=== PATIENT | female | born 1995 | race Caucasian/White ===

== ENCOUNTER 2017-04-09 14:56 | Day surgery (SDC) | payer BC ==
[~2017-04-09] VITALS: Ht 167.6 cm; Wt 95.5 kg
[2017-04-09 15:32] VITALS: Ht 167.6 cm; Wt 95.5 kg
[2017-04-09 16:18] VITALS: BP 111/66; PULSE 82; RESP 21
[2017-04-09] MEDS ORDERED: FENTAnyl 50 MCG/ML VIAL ONE (17:30)
[2017-04-09] MEDS ORDERED: MIDAZOLAM 1 MG/ML 2 ML INJ ONE ×4 (17:30→17:31)
--- NOTE | 2017-04-09 17:33 | OPPN ---
Date/Time of Note Date/Time of Note DATE: 04/09/17 TIME: 17:32 Operative Report Preoperative Diagnosis Rectal bleeding Postoperative Diagnosis Internal hemorrhoids Operation/Procedure Performed Colonoscopy Surgeon see signature line mental health assistant None Anesthesia: moderate sedation Estimated blood loss: none Transfusion Required none Specimen None Grafts/Implants none Complications none ERIN GARSIA MD Apr 09, 2017 17:33
--- NOTE | 2017-04-09 17:33 | OPPN ---
Date/Time of Note Date/Time of Note DATE: 04/09/17 TIME: 17:32 Operative Report Preoperative Diagnosis Rectal bleeding Postoperative Diagnosis Internal hemorrhoids Operation/Procedure Performed Colonoscopy Surgeon see signature line mobile unit assistant None Anesthesia: moderate sedation Estimated blood loss: none Transfusion Required none Specimen None Grafts/Implants none Complications none ERIN GARSIA MD Apr 09, 2017 17:33
--- NOTE | 2017-04-09 17:33 | OPPN ---
Date/Time of Note Date/Time of Note DATE: 04/09/17 TIME: 17:32 Operative Report Preoperative Diagnosis Rectal bleeding Postoperative Diagnosis Internal hemorrhoids Operation/Procedure Performed Colonoscopy Surgeon see signature line central supply assistant None Anesthesia: moderate sedation Estimated blood loss: none Transfusion Required none Specimen None Grafts/Implants none Complications none ERIN GARSIA MD Apr 09, 2017 17:33
[2017-04-09 17:58] VITALS: BP 111/61; PULSE 70; RESP 14
--- NOTE | 2017-04-10 04:07 | GILP ---
DATE OF PROCEDURE: NAME OF PROCEDURE: Colonoscopy. SURGEON: Erin Hare MD PREOPERATIVE DIAGNOSIS: Rectal bleeding. POSTOPERATIVE DIAGNOSES: 1. Colonoscopy all the way to the cecum. 2. Internal hemorrhoids. 3. No colitis or neoplasm was identified. INDICATION FOR THE PROCEDURE: Ms. Rita Ruiz is a 21-year-old female patient who had rectal b leeding, and at times the bleeding was profuse. Patient was scheduled for colonoscopic examination for further evaluation. The procedure and possible complications were well explained to the patient, she understood and cons ented to the procedure. DESCRIPTION OF PROCEDURE: Under the influence of fentanyl and Versed, the colonoscope was carefully introduced in the rectum and under direct vision, it was advanced all the way to the cecum. FINDINGS: The patient had internal hemorrhoids. No colitis or neoplasm was identified. She tolerated the procedure very well and there was no complication from the procedure. At the end of the procedure, she was awake with stable vital signs and she was discharged home to the care of h er family. IMPRESSION: Please see postoperative diagnoses. PLAN: Anusol-HC 2.5% cream b.i.d. Dictated By: ERIN EDWARD/AMARA Conf#: [id number] DID#: [id number]
== END 2017-04-09 18:06 | disposition home or self-care (01) ==
LOC: GIL 14:56
PROVIDERS: ATTEND Internal Medicine Gastroenterology
DX: K64.8 Other hemorrhoids (principal)
CPT/HCPCS: 45378; 84703; J2250; J3010; Z7610

== ENCOUNTER 2018-02-09 20:07 | Emergency (ER) | END 2018-02-09 22:00 | disposition home or self-care (01) ==